=== PATIENT | female | born 1975 | race Caucasian/White ===

== ENCOUNTER 2020-07-16 13:26 | Emergency (ER) | payer OTHER, SELFPAY ==
[2020-07-16] VITALS (14 sets, daily range): BP systolic 134–175; BP diastolic 88–110; PULSE 53–61; RESP 14–18; TEMP 36.3–36.6; O2SAT 30–100
--- NOTE | ~2020-07-16 | XR_ITS ---
EXAMINATION: XR chest 1V portable INDICATION: Cough and high blood pressure TECHNIQUE: Portable AP chest at 1541 hours COMPARISON: None available FINDINGS: The lungs are free of acute opacities. There is no pleural effusion or pneumothorax. The ca rdiomediastinal silhouette is normal. IMPRESSION: 1. No acute cardiopulmonary abnormality. Reviewed, dictated and finalized at location A.
--- NOTE | ~2020-07-16 | CT_ITS ---
EXAMINATION: CT brain wo con DATE: 07/16/2020 13:49 INDICATION: Headache. TECHNIQUE: Computed tomography (CT) of the head was performed without intravenous contrast. The mA wa s adjusted according to patient size. Iterative reconstruction technique was employed. The dose-lengt h product was 605.33 mGy-cm. COMPARISON: None FINDINGS: There is no intracranial hemorrhage, acute infarction, or abnormal intracranial mass lesion . The ventricles are normal in size. There is mild mucosal thickening in the paranasal sinuses. The o rbits are normal. The mastoid air cells are normal. IMPRESSION: 1. Normal brain. Reviewed, dictated and finalized at location A. IMPRESSION: 1. Normal brain.
[2020-07-16] MEDS: SODIUM CHLORIDE 0.9% IV 1,000 ML 999 ML IV CONT (15:49)
[2020-07-16] MEDS: LORazepam INJ (*CRX) 2 MG/ML VIAL 1 MG IV PUSH (15:50)
[2020-07-16 16:04] LABS: Basophils Absolute Auto 0.1 K/mm3 (0.0-0.1); Basophils Percent Auto 0.8 % (0.2-1.2); Eosinophils Absolute Auto 0.1 K/mm3 (0-0.3); Eosinophils Percent Auto 1.2 % (0-4.4); Hematocrit 45.3 % (37.0-47.0); Hemoglobin 15.2 g/dL (12.0-15.0); Immature Granulocyte Absolute 0.03 K/mm3 (0.00-0.031); Immature Granulocyte Percent A 0.3 % (0-0.5); Lymphocytes Percent Auto 30.2 % (18.3-44.2); Mean Corpuscular HGB Conc 33.6 g/dl (32-36); Mean Corpuscular Hemoglobin 31.1 pg (26-34); Mean Corpuscular Volume 92.8 fl (80-100); Mean Platelet Volume 10.8 fl (7.4-10.4); Monocytes Absolute Auto 0.5 K/mm3 (0.1-0.6); Monocytes Percent Auto 5.3 % (2.6-8.5); Neutrophils Absolute Auto 6.2 K/mm3 (1.3-6.7); Neutrophils Percent Auto 62.2 % (45.5-73.1); Platelet Count Result 260 k/mm3 (150-375); Red Blood Count 4.88 M/mm3 (4.2-5.4); Red Cell Distribution Width 12.7 % (11.5-14.5)
[2020-07-16 16:14] LABS: Alanine Aminotransferase 9 U/L (4-35); Albumin Level 4.4 g/dL (3.5-5.1); Alkaline Phosphatase 90 U/L (38-126); Anion Gap 7 mmol/L (8-16); Aspartate Amino Transferase 19 U/L (14-36); Bilirubin,Total 0.2 mg/dL (0.2-1.3); Blood Urea Nitrogen 12 mg/dL (7-17); Calcium 9.5 mg/dL (8.4-10.2); Carbon Dioxide 25 mmol/L (22-30); Chloride 109 mmol/L (98-107); Estimated CRCL calculation 61 ml/min; Estimated Glomerular Filt Rate > 60; Glucose 115 mg/dL (65-105); Potassium 3.7 mmol/L (3.4-5.0); Sodium 141 mmol/L (137-145)
--- NOTE | 2020-07-16 16:42 | ED.GENADULT ---
HPI - General Adult General Chief complaint: Recheck/Abnormal Lab/Rx Stated complaint: headache Time Seen by Provider: 07/16/20 14:49 Source: patient, family and RN notes reviewed Mode of arrival: ambulatory Limitations: no limitations History of Present Illness HPI narrative: Patient is a 45-year-old female who presents to emergency department for evaluation of headache that has been present now for the last 3 days frontal in nature patient has taken cbsb-cmt-gkdimku medications with minimal improvement denies URI symptoms or other complaints presents in no distress does note that she has been under increasing stress of late patient afebrile nontoxic-appearing on arrival presents with normal gait Related Data Allergies Allergy/AdvReac Type Severity Reaction Status Date / Time codeine Allergy Hives Verified 07/16/20 14:50 Review of Systems Review of Systems: All systems reviewed & are unremarkable except as noted in HPI and below PMFSH Past Medical History Medical History Depression with anxiety Hyperlipidemia Hypothyroidism Surgical History Surgical History H/O tubal ligation (~1996) History of appendectomy (~1983) Hx of tonsillectomy (~1980) Family History Family History Mother Bladder cancer Hypertension Sibling Anxiety and depression Daughter Anxiety and depression Chronic headaches Daughter Anemia Hyperthyroidism Social History Social History Smoking packs per day: 0.5 Smoking cigarettes per day: 10.0 Years smoked: 25 Smoking pack-years: 12.50 Smoking status: Current every day smoker Tobacco type: cigarettes Alcohol intake: current Substance use: never Substance use type: does not use Additional living arrangements comments: With Spouse Gender identity (if verbalized by the patient): Female Exam Narrative: Exam Narrative: GENERAL: Well-appearing, well-nourished, and in no acute distress. HEAD: Normocephalic, atraumatic. EYES: PERRLA and EOMI. ENT: Nares clear, no rhinorrhea or epistaxis. Mucous membranes moist. NECK: Supple. No adenopathy or masses. CHEST: Clear to auscultation. No respiratory distress. No wheezes rales or rhonchi HEART: Regular rate and rhythm. No murmur heard. Normal peripheral pulses. ABDOMEN: Soft, nontender, nondistended, normal active bowel sounds. EXTREMITIES: Normal range of motion. No edema. SKIN: Warm, dry, no rash. NEURO: No focal deficits. Alert and oriented x3. Cranial nerves II through XII grossly intact PSYCH: Normal mood and affect. Course Course Emergency Course: Patient in the room no distress was medicated evaluated blood pressure of 130/90 will be discharged discussion made with primary care who would like the patient to keep a diary of her blood pressures and will follow her in 1 week for discussion of whether or not she needs to be placed on medications patient agrees with this plan ABCs and vital signs intact and stable Consultations Consultation #1: Discussed case with patient's primary care office who would like the patient to follow in clinic to keep a diary of blood pressures with reevaluation in 1 week Date: 07/16/20 Time: 16:57 Vital Signs Vital signs: Vital Signs Temperature 97.3 F L 07/16/20 13:32 Pulse Rate 59 L 07/16/20 13:32 Respiratory Rate 18 07/16/20 13:32 Blood Pressure 151/99 H 07/16/20 13:32 Pulse Oximetry 100 07/16/20 13:32 Temperature 98 F 07/16/20 14:46 Pulse Rate 61 07/16/20 15:15 Respiratory Rate 14 07/16/20 15:15 Blood Pressure 144/88 H 07/16/20 16:16 Pulse Oximetry 98 07/16/20 16:55 Medical Decision Making MDM Narrative Medical decision making narrative: Patients headache was not sudden or maximal in onset. There are o focal neurological d
[2020-07-16 17:01] LABS: Add Urine Microscopic? YES; Appearance Urine Cloudy (Clear); Bacteria Urine Trace /hpf; Bilirubin Urine Negative (Negative); Blood Urine Negative (Negative); Color Urine Yellow (Yellow); Glucose Urine UA Negative (Negative); Ketones Urine Negative (Negative); Leukocyte Esterase Ur Trace LEU/UL (Negative); Mucus Urine Rare /lpf; Nitrate Urine Positive (Negative); Protein Urine Negative (Negative); Specific Grav Ur 1.014 (1.001-1.035); Squamous Epithelial Cell Urine Many /hpf (Few); Urobilinogen Urine Negative mg/dL (<2.0)
== END 2020-07-16 17:48 | disposition home or self-care (01) ==
PROVIDERS: Emergency Medicine Emergency Medical Services; Emergency Provider Emergency Medicine; PCP Family Medicine
DX: R51.9 Headache, unspecified (principal); N39.0 Urinary tract infection, site not specified; R03.0 Elevated blood-pressure reading, without diagnosis of hypertension; E78.5 Hyperlipidemia, unspecified; E03.9 Hypothyroidism, unspecified; F41.9 Anxiety disorder, unspecified; F32.9 Major depressive disorder, single episode, unspecified; F17.210 Nicotine dependence, cigarettes, uncomplicated
CPT/HCPCS: 36415; 70450; 71045; 80053; 81001; 85025; 87077; 87086; 87088; 87186; 96361; 96374; 99284; J2060; J7030

== ENCOUNTER 2021-05-16 12:10 | Outpatient (CLI) | payer MEDICAID, SELFPAY ==
--- NOTE | ~2021-05-16 | MR_ITS ---
EXAMINATION: MR cervical spine wo con DATE: 05/16/2021 13:05 INDICATION: Cervicalgia TECHNIQUE: Magnetic resonance imaging (MRI) of the cervical spine was performed without intravenous c ontrast. Sequences included sagittal T2-weighted FSE, sagittal T2-weighted FS FSE, sagittal T1-weight ed FSE, axial MERGE and axial T2-weighted FSE. COMPARISON: None FINDINGS: Straightening of the normal cervical lordosis. Vertebral body heights are normal. Bone marrow signa l intensity is normal. Mild disc height loss at C4-C5 and C6-C7. Moderate disc height loss at C5-C6. Cord signal intensity is normal. Cervical soft tissues are unremarkable. The following disc levels ar e specifically discussed: C2-C3: The disc does not extend beyond the endplate margin. There is no uncovertebral joint osteoarth ritis. There is mild right facet joint osteoarthritis. Left facet joint is fused with moderate hypert rophic changes. There is no neural foraminal stenosis. There is no central canal stenosis. C3-C4: The disc does not extend beyond the endplate margin. There is mild bilateral uncovertebral dominique nt osteoarthritis. There is mild right and moderate left facet joint osteoarthritis. There is mild le ft neural foraminal stenosis. There is no central canal stenosis. C4-C5: The disc does not extend beyond the endplate margin. There is mild bilateral uncovertebral dominique nt osteoarthritis. There is mild bilateral facet joint osteoarthritis. There is no neural foraminal s tenosis. There is no central canal stenosis. C5-C6: Small posterior disc osteophyte complex. There is mild left and moderate right uncovertebral j oint osteoarthritis. There is mild bilateral facet joint osteoarthritis. There is mild bilateral, rig ht greater than left neural foraminal stenosis. There is mild central canal stenosis with flattening of the right ventral surface of the cord. C6-C7: Disc is mildly bulging, eccentric to the right. There is mild left and moderate right uncovert ebral joint osteoarthritis. There is mild bilateral facet joint osteoarthritis. There is mild bilater al neural foraminal stenosis. There is mild central canal stenosis. C7-T1: The disc does not extend beyond the endplate margin. There is no uncovertebral joint osteoarth ritis. There is mild to moderate left and severe right facet joint osteoarthritis. There is mild bila teral neural foraminal stenosis. There is no central canal stenosis. IMPRESSION: 1. Mild cervical spondylosis. Reviewed, dictated and finalized at location A.
== END 2021-05-16 12:11 | disposition home or self-care (01) ==
LOC: ANHIMG 12:14
PROVIDERS: PCP Family Medicine; Visit Provider Nurse Practitioner
DX: M47.892 Other spondylosis, cervical region (principal)
CPT/HCPCS: 72141

== ENCOUNTER → 2021-05-19 00:26 | Outpatient (CLI) | payer MEDICAID, SELFPAY ==
[2021-05-19 13:00] LABS: Influenza A QL RT-PCR Positive (Negative); Influenza B QL RT-PCR Negative (Negative); SARS-CoV-2 RNA PCR Negative
== END ==
PROVIDERS: PCP Family Medicine; Visit Provider Nurse Practitioner
DX: Z20.822 Contact with and (suspected) exposure to COVID-19 (principal); R68.89 Other general symptoms and signs
CPT/HCPCS: 87502; C9803; U0003; U0005

== ENCOUNTER 2021-06-11 09:13 | Outpatient (CLI) | payer OTHER, SELFPAY ==
[2021-06-11 09:41] LABS: Hematocrit 46.3 % (37.0-47.0); Hemoglobin 15.2 g/dL (12.0-15.0); Mean Corpuscular HGB Conc 32.8 g/dl (32-36); Mean Corpuscular Hemoglobin 31.2 pg (26-34); Mean Corpuscular Volume 95.1 fl (80-100); Mean Platelet Volume 10.3 fl (7.4-10.4); Platelet Count Result 264 k/mm3 (150-375); Red Blood Count 4.87 M/mm3 (4.2-5.4); Red Cell Distribution Width 13.2 % (11.5-14.5); White Blood Count 9.4 K/mm3 (4.5-10.0)
== END 2021-06-11 09:14 | disposition home or self-care (01) ==
PROVIDERS: PCP Family Medicine; Visit Provider Nurse Practitioner Family
DX: D64.9 Anemia, unspecified (principal)
CPT/HCPCS: 36415; 85027

== ENCOUNTER 2021-10-12 14:19 | Emergency (ER) | payer OTHER, SELFPAY ==
[2021-10-12 14:42] VITALS: BP 146/99; PULSE 63; RESP 16; TEMP 36.4; O2SAT 98
--- NOTE | 2021-10-12 15:32 | PC.NURSE ---
pt asked how long her wait would be. When we informed her we were unsure of what her wait time would be, she walked out and stated, Take me off there, I am going to a different hospital.
== END 2021-10-12 15:32 | disposition left against medical advice (07) ==
PROVIDERS: PCP Nurse Practitioner
DX: M54.50 Low back pain, unspecified (principal)
CPT/HCPCS: 99199

== ENCOUNTER 2024-07-16 10:50 | Day surgery (SDC) | payer OTHER, SELFPAY ==
[2024-05-07 11:04] VITALS: BMI 23.9
[2024-06-28 09:40] VITALS: BMI 24.7
--- NOTE | 2024-07-16 07:02 | P.PNAN_ITS ---
Anes - Initial Pre Proc Eval Procedure: Operation Date: 07/16/24 13:00 Proposed Procedures p Screening Colonoscopy - Devon Watt MD Date/Time: 07/16/24 07:02 Surgeon: Devon Watt MD Pre Op Diagnosis: Screening for Neoplasm of Colon Patient Data Age: 49 Gender: F Height: 1.57 m Weight: 61.5 kg Allergies Allergy/AdvReac Type Severity Reaction Status Date / Time codeine Allergy Hives Verified 07/16/24 11:16 Xpobkyr-WOR-CrD Reductase AdvReac Cramping Verified 07/16/24 11:16 Inhibitor of the Muscles Home Medications Medication Instructions Recorded Confirmed Type cetirizine 10 mg tablet (Zyrtec) 10 mg PO DAILY #30 tabs 06/18/22 07/16/24 Rx albuterol sulfate 90 mcg/actuation 1 inh inhalation Q4H PRN shortness 05/02/24 07/16/24 Rx aerosol inhaler of breath or wheezing #6.7 grams hydrochlorothiazide 12.5 mg tablet 12.5 mg PO DAILY #90 tabs 05/02/24 07/16/24 Rx cholecalciferol (vitamin D3) 50 50 mcg PO DAILY 06/28/24 07/16/24 History mcg (2,000 unit) capsule (Vitamin D3) omega 7-bcy-zwa-fish oil 1,000 mg 1 cap PO DAILY 06/28/24 07/16/24 History (120 mg-180 mg) capsule (Fish Oil) Patient hx anesthesia problems: none Family hx anesthesia problems: none Results Review: All pre-operative results and documents have been reviewed as part of the pre- operative evaluation. [facility] Past Medical History Medical History (Updated 07/16/24 @ 12:44 by Devon Watt MD) COPD (chronic obstructive pulmonary disease) Chronic bronchitis Hypertension Hyperlipidemia Depression with anxiety Hypothyroidism Surgical History Surgical History Hx of tonsillectomy (~1980) H/O tubal ligation (~1996) History of appendectomy (~1983) Family History Family History Mother Bladder cancer Hypertension Sibling Anxiety and depression Daughter Anxiety and depression Chronic headaches Daughter Anemia Hyperthyroidism Social History Social History (Reviewed 06/08/24 @ 14:32 by ALLIE Zavaleta Smoking packs per day: 0.5 Smoking cigarettes per day: 10.0 Years smoked: 25 Smoking pack-years: 12.50 Smoking status: Current every day smoker Tobacco type: cigarettes Alcohol intake: current Alcohol use details: Rarely Substance use: never Substance use type: does not use Lack of Transportation: No Lack of Food: Never True Current Housing: I Have Housing Concerned About Future Housing: No Difficulty Paying Gas/Electric Bills: No Difficulty Paying for Meds: No Currently Unemployed: No Education: High School Diploma/GED Difficulty w/ Childcare or Family Care: No Living arrangements: with family Additional living arrangements comments: With Spouse Occupation/Education: occupation Gender identity (if verbalized by the patient): Female Sexual Orientation (if Verbalized by the Patient): Straight or Heterosexual Agree to blood products: Yes Anes - Eval Final PreProcedure Day of Procedure 07/16/24 07:02 Patient weight: overweight Heart: regular rate and rhythm Lungs: clear to auscultation Airway: Mallampati scale class II Neurological: alert and oriented Last oral intake: >/= 8 hours ASA classification: III Emergent: no Anesthetic plan: proceed Anesthesia type and monitoring: general GIVS and standard monitoring Results Review: All pre-operative results and documents have been reviewed as part of the pre- operative evaluation. Informed Consent: The patient's anesthetic plan and its attendant risks and benefits were discussed with the patient/family/POA. Questions were solicited and answers provided to the satisfaction of the patient/family/POA.
[2024-07-16 11:17] VITALS: BP 136/83; PULSE 62; RESP 16; TEMP 36.9; O2SAT 97
[2024-07-16] MEDS: LACTATED RINGERS 1,000 ML 150 ML IV CONT (11:21)
--- OUTSIDE RECORDS SUMMARY | 2024-07-16 11:23 | XMS_ITS | Encounter Summary ---
Author Organization [facility] Address [address] [place] [address] Care Team Providers Care Blower Installer Name Role Phone Unavailable Primary Care Provider Unavailabl e Encounter Details Date Type Department Care Team (Latest Contact Info) Description 06/05/2024 Results Follow-Up [facility] [place] [address] [place] [address] Savanah Strickland ANP [address] [place] [address] TSH, LIPID PANEL, COMPREHENSIVE METABOLIC PANEL, CBC WITH DIFFERENTIAL Social History Tobacco Use Types Packs/Day Years Used Date Smoking Tobacco: Never Assessed Comments Unknown Sex and Gender Information Value Date Recorded Sex Assigned at Not on file 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 Patient verbalized understanding. * Result Encounter Note - Savanah Strickland ANP - 06/05/2024 1:34 PM CDT Contact patient regarding result. Cholesterol and thyroid abnormal. Recommend FU with PCP for advice on evaluation, treatment. documented in this encounter Plan of Treatment Not on file documented as of this encounter Visit Diagnoses Not on filedocumented in this encounter
--- OUTSIDE RECORDS SUMMARY | 2024-07-16 11:23 | XMS_ITS | Clinical Summary ---
Author Organization [facility] Address [address] [place] [address] Care Team Providers Care Activities Director Name Role Phone Unavailable Primary Care Provider Unavailabl e Social History Tobacco Use Types Packs/Day Years Used Date Smoking Tobacco: Never Assessed Comments Unknown Sex and Gender Information Value Date Recorded Sex Assigned at Not on file Legal Sex Female 6:08 PM CDT Gender Identity Not on file Sexual Orientation Not on file Plan of Treatment Health Maintenance Due Date Last Done Comments Cervical Cancer Screening Pa p Smear (Age 30 to 64) Every 3 Years 1974 Colorectal Cancer Screening Colonoscopy (10 Years) 1974 Annual Physical 1977 Hepatitis C 1992 DTaP, Tdap and Td Vaccines ( 1 - Tdap) 1993 Hepatitis B Vaccines (1 of 3 - 19+ 3-dose series) 1993 Cervical Cancer Screening Pa p with HPV Testing (Age 30 to 64) Every 5 Years 2004 Cervical Cancer Screening with HPV 2004 Mammogram Screening 2014 COVID-19 Vaccine ( - 2023-2 5 season) 2023 Pneumococcal Vaccine: 50+ Ye ars (1 of 1 - PCV) 2024 Zoster Vaccines (1 of 2) 2024 Meningococcal B Vaccine Aged Out No l onger eligible based on patient's age to complete this topic Meningococcal Vaccine Aged Out No mikie arely eligible based on patient's age to complete this topic RSV Immunizations Under 20 Months Aged Out No longer eligible based on patient's age to complete this topic Insurance [employer]
--- OUTSIDE RECORDS SUMMARY | 2024-07-16 11:23 | XMS_ITS | CONTINUITY OF CARE DOCUMENT ---
Author Name lita london Address Unknown Organization [facility] Address [address] [place] [address] Phone [phone] Care Team Providers Care Land Resource Specialist Name Role Phone Marco RAMIREZ, Ramin Unavailable Tracy Barber MD Unavailable Tracy Barber MD Unavailable PROBLEMS Condition Status Date Provider Notes Dizziness active Ramin Lara MD Abnormal EKG active Ramin Lara MD HTN--echo EF 60%, 05/2021 active Ramin wilkinson MD Hyperlipidemia active Ramin Lara MD Anxiety active Ramin Lara MD Hypothyroidism active Ramin Lara MD Tobacco abuse active Ramin Lara MD Chest pain active Ramin Lara MD Shortness of breath--normal routine stress, 05/2021 active Raimn Lara MD Diastolic dysfunction active Ramin Owusu ENCOUNTERS Date Type Provider Location Encounter Diag nosis - In-person encounter Office Visit Ramin Lara MD [facility] HTN--echo EF 60%, hortness of breath--normal routine stress, iastolic dysfunction - In-person encounter Office Visit Ramin Lara MD [facility] DizzinessAbnormal EKGHTN--echo EF 60%, 05/2021HyperlipidemiaAnx ietyHypothyroidismTobacc o abuseChest painShortness of breath--normal routine stress, 05/2021 VITAL SIGNS Date Observation Value Provider Body Mass Index (Ratio) 26.07 kg/m2 Mike Lara MD blood pressure, diastolic 92 mm[Hg] Sanam Aguirre blood pressure, systolic 142 mm[Hg] Dora Aguirre oxygen saturation, oximetry 96 % Bruna Aguirre respiratory rate E&M 16 /min Jazmine Aguirre pulse rate 71 /min Bruna wisdom weight E&M 138 [lb_av] Bruna wisdom blood pressure, cuff size regular Sanam Aguirre height E&M 61 [in_i] Bruna wisdom weight E&M 128 [lb_av] Kyle saha Body Mass Index (Ratio) 24.18 kg/m2 Mike Lara MD blood pressure, diastolic 77 mm[Hg] Li nkLogic blood pressure, systolic 112 mm[Hg] Tracy kLogic blood pressure, diastolic 77 mm[Hg] Ca therine Cushing blood pressure, systolic 112 mm[Hg] Cat herine Orlin oxygen saturation, oximetry 98 % Maria Guadalupe Cushing respiratory rate E&M 16 /min Catheri ne Cushing pulse rate 74 /min Maria Guadalupe Cushing weight E&M 128 [lb_av] Maria Guadalupe Orlin height E&M 61 [in_i] Maria Guadalupe Orlin blood pressure, cuff size regular Ca therine Cushing ALLERGIES Allergy Name Onset Date Reaction Criticality Status CODEINE High Criticality active HISTORY OF MEDICATION USE Medication Status Instructions Dates Provider Indications Com ments spironolactone 25 mg tablet active Take 1 tablet by mouth once a day 2 Kishor Aguirre nicotine 7 mg/24 hr patch 24 hour active Apply 1 patch to skin once a day as directed 2 Kishor Aguirre buspirone 5 mg tablet active TAKE 1 TABLET BY MOUTH THREE TIMES DAILY NEEDED FOR ANXIETY Maria Guadalupe Orlin cephalexin 500 mg capsule active TAKE 1 CAPSULE BY MOUTH EVERY 8 HOURS Maria Guadalupe Orlin SOCIAL HISTORY Date Observation Value Provider social history reviewed E&M revi ewed - no changes required Kishor Aguirre social history E&M S moking History: P atient currently smokes every day. Kishor Aguirre number of years as a smoker 15 a Maria Guadalupe Cushing smoking, date started 1987 Cather ine Orlin smoking history, total pack/day 10 cigs Maria Guadalupe Orlin cigarette use yes Maria Guadalupe Orlin smoking status Current every day smoker C atherine Cushing social history reviewed E&M revi ewed - no changes required Kishor Aguirre INSURANCE PROVIDERS Payer name Policy type / Coverage type [facility] ID [employer] MEDICAID (2) Medicaid [id number] TREATMENT PLAN Date Name Performer [id number],S, Kishor Esquivelza i [id number],S, Kishor Esquivelza i [id number],S, Kishor Santiagomedza i [id number],S, Kishor Santiagomedza i [id number],S, Kishor Santiagomedza i [id number],S, Kishor Santiagomedza i [id number],S, Kishor Santiagomedza i [id number],S, Kishor Santiagomedza i [id number],S, Kishor Santiagomedza i [id number],S, Kishor Ahmedza i Cardiology Kishor Ahmedzai Cardiology Kishor Ahmedzai Cardiology Kishor Ahmedzai Cardiology Kishor Ahmedzai Cardiology Kishor Ahmedzai Cardiology Kishor Ahmedzai Cardiology Kishor Ahmedzai Cardiology Kishor Ahmedzai Cardiology Kishor Ahmedzai Cardiology Kishor Ahmedzai Date Name Complete Echo Stress Routine CXR- PA/Lat DLCO - 44241 FRC - 58305 FVC - 32283 HISTORY OF PROCEDURES Procedure Date Procedure Name Provider Procedure Notes S tatus Spirometry Ramin Lara MD completed FVC / MVV with bronchodilator - 79109 Ramin Lara MD completed BLOOD COUNT HEMOGLOBIN Ramin Lara MD completed FRC - 60683 Ramin Lara MD complete d SpO2 w/o 6min walk/titration Ramin Lara MD completed SVC - 82536 Ramin Lara MD complete d DLCO - 35131 Ramin Lara MD complet ed EKG Ramin Lara MD completed
--- OUTSIDE RECORDS SUMMARY | 2024-07-16 11:23 | XMS_ITS | Clinical Summary ---
Author Organization [facility] [employer] [place] Address [address] [address] Care Team Providers Care Operating Systems Specialist Name Role Phone Unavailable Primary Care Provider Unavailabl e Active Problems No known active problems Encounters Date Type Department Care Team Description 06/05/2024 External Device Data [facility] ABSTRACTION Provider, Abstract 06/05/2024 External Device Data [facility] ABSTRACTION Provider, Abstract 06/05/2024 External Device Data [facility] ABSTRACTION Provider, Abstract 06/05/2024 Results Follow-Up [facility] [employer] [address] [place] [address] Savanah Strickland, ANP TSH, LIPID PANEL, COMPREHENSIVE METABOLIC PANEL, CBC WITH DIFFERENTIAL 06/04/2024 9:40 AM CDT Office Visit [facility] [employer] 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 Gender Identity Not on file Sexual Orientation Not on file Last Filed Vital Signs Vital Sign Reading Time Taken Comments Blood Pressure 132/86 06/04/2024 9:25 AM CDT Pulse - - Temperature - - Respiratory Rate - - Oxygen Saturation - - Inhaled Oxygen Concentration - - Weight 68.4 kg (150 lb 14.4 oz) 06/04/2024 9:25 AM CDT Height 157.5 cm (5' 2 ) 06/04/2024 9:25 AM CDT Body Mass Index 27.6 06/04/2024 9:25 AM CDT Plan of Treatment Health Maintenance Due Date Last Done Comments Pre-Diabetes and Diabetes Screening 1974 DTAP/TDAP/TD VACCINES (1 - Tdap) 1993 HEPATITIS B VACCINES (1 of 3 - 19+ 3-dose series) 04/29 HPV/Cotest (21-29) 05/23/1995 CERVICAL CANCER SCREENING 2004 HPV/Cotest (30-65) 2004 PAP SMEAR 2004 BREAST CANCER SCREENING 2014 COLORECTAL SCREENING 05/23/2019 Colorectal Cancer Screening 05/23/2019 FIT-DNA Q 3 years 05/23/2019 FIT/FOBT Q 1 year 05/23/2019 Flex Sig/CT Colonography Q 5 years 05/23/2019 INFLUENZA VACCINE (#1) 2023 ZOSTER VACCINE (1 of 2) 2024 Procedures Procedure Name Priority Date/Time Associated Diagnosis Comments CBC WITH DIFFERENTIAL Routine 06/04/2024 9:23 AM CDT Screening for condition COMPREHENSIVE METABOLIC PANEL Routine 06/04/2024 9:23 AM CDT Screening for condition LIPID PANEL Routine 06/04/2024 9:23 AM CDT Screening for condition TSH Routine 06/04/2024 9:23 AM CDT Screening for condition from Last 3 Months Results * (ABNORMAL) CBC WITH DIFFERENTIAL (06/04/2024 9:23 AM CDT) WBC 9.8 3.8 - 10.8 Thousand/u L [facility] RBC 4.99 3.80 - 5.10 Million/uL [facility] HEMOGLOBIN 15.3 11.7 - 15.5 g/dL [facility] HEMATOCRIT 45.5(H) 35.0 - 45.0 % [facility] MCV 91.2 80.0 - 100.0 fL [facility] MCH 30.7 27.0 - 33.0 pg [facility] MCHC 33.6 32.0 - 36.0 g/dL [facility] Comment: For adults, a slight decrease in the calculated MCHC value (in the range of 30 to 32 g/dL) is most likely not clinically significant; however, it should be interpreted with caution in correlation with other red cell parameters and the patient's clinical condition. RDW 13.2 11.0 - 15.0 % [facility] PLATELETS 286 140 - 400 Thousand/u L [facility] MPV 11.3 7.5 - 12.5 fL [facility] NEUTROPHIL ABSOLUTE 6,546 1,500 - 7,800 cells/uL [facility] LYMPHOCYTE ABSOLUTE 2,597 850 - 3,900 cells/uL [facility] MONOCYTE ABSOLUTE 500 200 - 950 cells/uL [facility] EOSINOPHIL ABSOLUTE 78 15 - 500 cells/uL [facility] BASOPHILS ABSOLUTE 78 0 - 200 cells/uL [facility] NEUTROPHIL 66.8 % [facility] LYMPHOCYTES 26.5 % [facility] MONOCYTE 5.1 % [facility] EOSINOPHILS 0.8 % [facility] BASOPHILS 0.8 % [facility] Comment: Test Performed at: [facility] [address] [place] [id number] Vani Nathan MD Blood 06/04/2024 9:23 AM CDT 06/05/2024 3:57 AM CDT us Savanah Strickland [facility] HEMATOLOGY ORDERABLES Final Result [facility] [phone] [facility] [address] [place] [phone] * (ABNORMAL) TSH (06/04/2024 9:23 AM CDT) TSH 5.79(H) mIU/L [facility] Comment: Reference Range > or = 20 Years 0.40-4.50 Ranges First trimester 0.26-2.66 Second trimester 0.55-2.73 Third trimester 0.43-2.91 Test Performed at: [facility] [address] [place] [address] Vani Nathan MD Blood 06/04/2024 9:23 AM CDT 06/05/2024 3:57 AM CDT us Savanah Strickland ANP CHEMISTRY ORDERABLES Final R esult [facility] [phone] [facility] [address] * (ABNORMAL) LIPID PANEL (06/04/2024 9:23 AM CDT) CHOLESTEROL 244(H) <200 mg/dL [facility] HDL 58 > OR = 50 mg/dL [facility] TRIGLYCERIDE 174(H) <150 mg/dL [facility] LDL CALCULATED 155(H) mg/dL (calc) [facility] Comment: Reference range: <100 Desirable range <100 mg/dL for primary prevention; <70 mg/dL for patients with CHD or diabetic patients with > or = 2 CHD risk factors. LDL-C is now calculated using the Terrance-Silverman calculation, which is a validated novel method providing better accuracy than the Friedewald equation in the estimation of LDL-C. Terrance SIMS et al. JEANIE. 2013;310(19): 2974-3110 (http://education.[employer]/faq/EJG686) CHOL/HDL RATIO 4.2 <5.0 (calc) [facility] NON-HDL CHOLESTEROL 186(H) <130 mg/dL (calc) [facility] Comment: For patients with diabetes plus 1 major ASCVD risk factor, treating to a non-HDL-C goal of <100 mg/dL (LDL-C of <70 mg/dL) is considered a therapeutic option. Test Performed at: [facility] [place] [address] Vani Nathan MD Blood 06/04/2024 9:23 AM CDT 06/05/2024 3:57 AM CDT us Savanah Strickland [facility] CHEMISTRY ORDERABLES Final R esult [facility] [phone] [facility] [address] [facility] [place] [address] * COMPREHENSIVE METABOLIC PANEL (06/04/2024 9:23 AM CDT) GLUCOSE 93 65 - 99 mg/dL [facility] Comment: Fasting reference interval BUN 17 7 - 25 mg/dL [facility] CREATININE 0.78 0.50 - 1.03 mg/dL [facility] GFR 92 > OR = 60 mL/min/1. 73m2 [facility] BUN/CREAT RATIO SEE NOTE: 6 - 22 (calc) [facility] Comment: Not Reported: BUN and Creatinine are within reference range. SODIUM 141 135 - 146 mmol/L [facility] POTASSIUM 4.2 3.5 - 5.3 mmol/L [facility] CHLORIDE 105 98 - 110 mmol/L [facility] CO2 25 20 - 32 mmol/L [facility] CALCIUM 9.5 8.6 - 10.4 mg/dL [facility] TOTAL PROTEIN 6.9 6.1 - 8.1 g/dL [facility] ALBUMIN 4.5 3.6 - 5.1 g/dL [facility] GLOBULIN 2.4 1.9 - 3.7 g/dL (calc) [facility] ALBUMIN/GLOBULIN RATIO 1.9 1.0 - 2.5 (calc) [facility] BILIRUBIN TOTAL 0.2 0.2 - 1.2 mg/dL [facility] ALKALINE PHOSPHATASE 106 37 - 153 U/L [facility] AST 15 10 - 35 U/L [facility] ALT 13 6 - 29 U/L [facility] Comment: Test Performed at: [facility] [address] [facility] [place] [address] Vani Nathan MD Blood 06/04/2024 9:23 AM CDT 06/05/2024 3:57 AM CDT us Savanah Strickland ANP CHEMISTRY ORDERABLES Final R esult [facility] [phone] [facility] [address] [place] [address] from Last 3 Months Insurance [employer] OPEN ACCESS
--- NOTE | 2024-07-16 12:44 | PM.IMHP ---
H&P: HPI History of Present Illness Date/Time: 07/16/24 12:44 Chief Complaint: Screening colonoscopy Narrative: This is the patient's first colonoscopy. There are no GI symptoms and there is no family history of colorectal cancer. Review of Systems Review of Systems: All systems reviewed & are unremarkable except as noted in HPI and below PMFSH Past Medical History Medical History (Updated 07/16/24 @ 12:44 by Devon Watt MD) COPD (chronic obstructive pulmonary disease) Chronic bronchitis Hypertension Hyperlipidemia Depression with anxiety Hypothyroidism Surgical History Surgical History Hx of tonsillectomy (~1980) H/O tubal ligation (~1996) History of appendectomy (~1983) Family History Family History Mother Bladder cancer Hypertension Sibling Anxiety and depression Daughter Anxiety and depression Chronic headaches Daughter Anemia Hyperthyroidism Social History Social History Smoking packs per day: 0.5 Smoking cigarettes per day: 10.0 Years smoked: 25 Smoking pack-years: 12.50 Smoking status: Current every day smoker Tobacco type: cigarettes Alcohol intake: current Alcohol use details: Rarely Substance use: never Substance use type: does not use Lack of Transportation: No Lack of Food: Never True Current Housing: I Have Housing Concerned About Future Housing: No Difficulty Paying Gas/Electric Bills: No Difficulty Paying for Meds: No Currently Unemployed: No Education: High School Diploma/GED Difficulty w/ Childcare or Family Care: No Living arrangements: with family Additional living arrangements comments: With Spouse Occupation/Education: occupation Gender identity (if verbalized by the patient): Female Sexual Orientation (if Verbalized by the Patient): Straight or Heterosexual Agree to blood products: Yes Meds Home Medications and Allergies Home Medications Medication Instructions Recorded Confirmed Type cetirizine 10 mg tablet (Zyrtec) 10 mg PO DAILY #30 tabs 06/18/22 07/16/24 Rx albuterol sulfate 90 mcg/actuation 1 inh inhalation Q4H PRN shortness 05/02/24 07/16/24 Rx aerosol inhaler of breath or wheezing #6.7 grams hydrochlorothiazide 12.5 mg tablet 12.5 mg PO DAILY #90 tabs 05/02/24 07/16/24 Rx cholecalciferol (vitamin D3) 50 50 mcg PO DAILY 06/28/24 07/16/24 History mcg (2,000 unit) capsule (Vitamin D3) omega 1-ohp-ttn-fish oil 1,000 mg 1 cap PO DAILY 06/28/24 07/16/24 History (120 mg-180 mg) capsule (Fish Oil) Allergies Allergy/AdvReac Type Severity Reaction Status Date / Time codeine Allergy Hives Verified 07/16/24 11:16 Qgmouwy-EHE-LwF Reductase AdvReac Cramping Verified 07/16/24 11:16 Inhibitor of the Muscles Vital Signs Vital Signs - 24 hr 07/16/24 11:17 Temperature 98.5 F Pulse Rate 62 Respiratory Rate 16 Blood Pressure 136/83 Pulse Oximetry 97 Oxygen Delivery Room Air Exam Const: General: cooperative and healthy appearing Resp: Effort & Inspection: normal respiratory effort and able to speak in complete sentences Auscultation: clear to auscultation bilaterally Cardio: Rate: regular rate Rhythm: regular rhythm GI: Inspection: normal to inspection GI Palp: No No hepatosplenomegaly present Auscultation: normal bowel sounds Rectal Exam: deferred Skin: General skin exam: normal color Psych: Appearance: grossly normal Mental Status: mental status grossly normal Assessment and Plan Assessment and plan (1) Encounter for screening colonoscopy: Code(s): Z12.11 - Encounter for screening for malignant neoplasm of colon Status: Acute Assessment and Plan: The patient is deemed a good candidate for the procedure. Consent signed. Will proceed.
[2024-07-16 13:12] VITALS: BP 125/74; PULSE 58; RESP 16; O2SAT 96
--- NOTE | 2024-07-16 13:19 | WPDANESPN ---
Anes - Prog Note Post-Op Date/Time: 07/16/24 13:19 Cardiovascular status: normal Respiratory status: normal Airway patency: baseline Mental status: baseline Post-Op hydration status: normal Vital Signs: Last Vital Signs Temp 36.9 C 07/16/24 11:17 Pulse 58 L 07/16/24 13:12 Resp 16 07/16/24 13:12 BP 125/74 07/16/24 13:12 Pulse Ox 96 07/16/24 13:12 O2 Del Method Room Air 07/16/24 13:12 Pain Score (VAS): 0 I/O: Intake & Output 07/15/24 07/16/24 07/16/24 23:59 07:59 15:59 Intake Total 200 Balance 200 Post-procedural complaints: none Patient Feedback: Patient satisfied with anesthetic care. Other Findings: Patient vital signs back to baseline. Patient denies nausea and vomiting. Patient's pain under control. Patient OK for discharge.
[2024-07-16 13:22] VITALS: BP 105/79; PULSE 57; RESP 16; O2SAT 96
[2024-07-16 13:32] VITALS: BP 110/79; PULSE 52; RESP 16; O2SAT 98
== END 2024-07-16 13:36 | disposition home or self-care (01) ==
PROVIDERS: PCP Nurse Practitioner Family; Visit Provider Internal Medicine Gastroenterology
PROC: 0DJD8ZZ Inspection of Lower Intestinal Tract, Via Natural or Artificial Opening Endoscopic (ICD-10-PCS; CPT 45378; principal; 2024-07-16 13:00)
DX: Z12.11 Encounter for screening for malignant neoplasm of colon (principal); K57.30 Diverticulosis of large intestine without perforation or abscess without bleeding
CPT/HCPCS: 45378

== ENCOUNTER 2024-09-27 09:04 | Outpatient (CLI) | payer OTHER, SELFPAY ==
--- NOTE | ~2024-09-27 | MM_ITS ---
EXAMINATION: MM screening aruna BI w grover HISTORY: Screening TECHNIQUE: Craniocaudal and mediolateral oblique 3-D tomosynthesis images were obtained and synthetic 2-D images were generated. CAD analysis was submitted and interpreted. COMPARISON: No prior mammogram is available for comparison at this institution. BREAST PARENCHYMAL COMPOSITION: Not dense: There are scattered areas of fibroglandular density. FINDINGS: There is a circumscribed mass in the lower inner quadrant of the left breast, anterior thir d. There are no suspicious calcifications, masses or architectural distortion in the right breast to suggest malignancy. IMPRESSION: 1. Circumscribed low-density mass lower inner quadrant of the left breast, anterior third. 2. Additional mammographic views and possible breast ultrasound are recommended. BI-RADS Category 0: Incomplete: Needs additional imaging evaluation. Reviewed, dictated and finalized at location B. IMPRESSION: 1. Circumscribed low-density mass lower inner quadrant of the left breast, ante rior third. 2. Additional mammographic views and possible breast ultrasound are recommended . BI-RADS Category 0: Incomplete: Needs additional imaging evaluation.
--- OUTSIDE RECORDS SUMMARY | 2024-09-27 09:21 | XMS_ITS | Clinical Summary ---
Author Organization [facility] [place] Address [address] [place] [phone] Care Team Providers Care Non Emergency Services Ambulance Driver Name Role Phone Unavailable Primary Care Provider Unavailabl e Active Problems No known active problems Encounters Date Type Department Care Team Description 09/12/2024 External Device Data [facility] ABSTRACTION Provider, Abstract 09/12/2024 External Device Data [facility] ABSTRACTION Provider, Abstract 09/11/2024 External Device Data [facility] ABSTRACTION Provider, Abstract 08/14/2024 External Device Data [facility] ABSTRACTION Provider, Abstract 07/19/2024 External Device Data STL ABSTRACTION Provider, Abstract 07/18/2024 External Device Data STL ABSTRACTION Provider, Abstract 07/17/2024 External Device Data STL ABSTRACTION Provider, Abstract from Last 3 Months Social History Tobacco Use Types Packs/Day Years Used Date Smoking Tobacco: Never Assessed Comments Unknown Sex and Gender Information Value Date Recorded Sex Assigned at Not on file 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
--- OUTSIDE RECORDS SUMMARY | 2024-09-27 09:22 | XMS_ITS | Clinical Summary ---
Author Organization [facility] Address [address] [place] [address] Care Team Providers Care Riverboat Master Name Role Phone Unavailable Primary Care Provider [...]
== END 2024-09-27 09:05 | disposition home or self-care (01) ==
LOC: ANHIMG 09:05
PROVIDERS: PCP Nurse Practitioner Family; Visit Provider Nurse Practitioner Family
DX: Z12.31 Encounter for screening mammogram for malignant neoplasm of breast (principal); R92.8 Other abnormal and inconclusive findings on diagnostic imaging of breast
CPT/HCPCS: 77063; 77067

== ENCOUNTER 2024-10-19 12:16 | Outpatient (CLI) | payer OTHER, SELFPAY ==
--- NOTE | ~2024-10-19 | MMUS_ITS ---
EXAMINATION: MM diagnostic aruna LT w gorver, US breast LT limited HISTORY: Left breast mass TECHNIQUE: Additional 3-D tomosynthesis images of the left breast were performed and synthetic 2-D images were generated. CAD analysis was submitted and interpreted. High resolution limited left breast ultrasound was performed. COMPARISON: 09/27/2024 BREAST PARENCHYMAL COMPOSITION:Not Dense. There are scattered areas of fibroglandular density. FINDINGS: MAMMOGRAPHIC FINDINGS: Spot compression views demonstrate persistent circumscribed 5 mm mass in the left subareolar region. ULTRASOUND: At the 9:00 left subareolar region, there is a 5 mm circumscribed hypoechoic mass, probably a small cyst. There is an additional 3 mm circumscribed hypoechoic mass at the 12:00 position left breast, 1 cm from the nipple. IMPRESSION: Subcentimeter probable benign lesions of the left subareolar region, as above. Six-month follow-up ultrasound recommended to assure stability. BI-RADS category 3, probably benign findings. Reviewed, dictated and finalized at location . IMPRESSION: Subcentimeter probable benign lesions of the left subareolar region, as above. Six-month follow-up ultrasound recommended to assure stability. BI-RADS category 3, probably benign findings.
--- OUTSIDE RECORDS SUMMARY | 2024-10-19 12:19 | XMS_ITS | Clinical Summary ---
Author Organization [facility] Address [address] [place] [id number] Care Team Providers Care Intellectual Property Paralegal Name Role Phone Unavailable Primary Care Provider [...]
== END 2024-10-19 12:17 | disposition home or self-care (01) ==
LOC: ANHFOHIMG 12:17
PROVIDERS: PCP Nurse Practitioner Family; Visit Provider Nurse Practitioner Family
DX: N63.24 Unspecified lump in the left breast, lower inner quadrant (principal); R92.8 Other abnormal and inconclusive findings on diagnostic imaging of breast
CPT/HCPCS: 76642; 77061; 77065; G0279

== ENCOUNTER 2025-02-05 14:05 | Outpatient (CLI) | payer OTHER, SELFPAY ==
--- OUTSIDE RECORDS SUMMARY | 2025-02-05 16:03 | XMS_ITS | Clinical Summary ---
Author Organization [facility] Address [address] [place] [id number] Care Team Providers Care Five Piece Expansion Maker Hand Name Role Phone Unavailable Primary Care Provider [...] Screening with HPV 2004 Mammogram Screening 2014 Pneumococcal Vaccine: 50+ Ye ars (1 of 1 - PCV) 2024 Zoster Vaccines (1 of 2) 2024 COVID-19 Vaccine (1 - 2024-2 6 season) 2024 Influenza Adult (#1) 2024 Hepatitis A Vaccines Aged Out No long er eligible based on patient's age to complete this topic Meningococcal B Vaccine Aged Out No l onger eligible based on patient's age to complete this topic Meningococcal Vaccine Aged Out No mikie arely eligible based on patient's age to complete this topic RSV Immunizations Under 20 Months Aged Out No longer eligible based on patient's age to complete this topic Insurance [place]
--- OUTSIDE RECORDS SUMMARY | 2025-02-05 16:03 | XMS_ITS | Clinical Summary ---
Author Organization [facility] [employer] [place] Address [address] [place] [phone] Care Team Providers Care Line Closer Name Role Phone Unavailable Primary Care Provider Unavailabl e Active Problems No known active problems Encounters Date Type Department Care Team Description 01/01/2025 External Device Data STL ABSTRACTION Provider, Abstract 12/26/2024 External Device Data STL ABSTRACTION Provider, Abstract 12/25/2024 External Device Data STL ABSTRACTION Provider, Abstract 12/19/2024 External Device Data STL ABSTRACTION Provider, Abstract 12/18/2024 External Device Data STL ABSTRACTION Provider, Abstract 11/13/2024 External Device Data STL ABSTRACTION Provider, Abstract from Last 3 Months Social History Tobacco Use Types Packs/Day Years Used Date Smoking Tobacco: Never Assessed Comments Unknown Sex and Gender Information Value Date Recorded Sex Assigned at Not on file 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
[2025-02-05 20:24] LABS: Free T4 Free Thyroxine 0.79 ng/dL (0.78-2.19)
[2025-02-05 20:38] LABS: Thyroid Stimulating Hormone 4.940 uIU/mL (0.465-4.680)
== END 2025-02-05 14:06 | disposition home or self-care (01) ==
LOC: ANHGOSHLAB 14:06
PROVIDERS: PCP Family Medicine; Visit Provider Nurse Practitioner Family
DX: E03.9 Hypothyroidism, unspecified (principal)
CPT/HCPCS: 36415; 84439; 84443